=== PATIENT | female | born 1940 | race Asian ===

== ENCOUNTER 2022-05-16 10:15 | Emergency (ER) | payer MEDICARE, OTHER ==
[~2022-05-16] VITALS: Ht 144.8 cm; Wt 64.9 kg
--- NOTE | 2022-05-16 10:25 | NUR ---
C-COLLAR GIVEN TO PARAMEDICS, APPLIED TO PT AT BEDSIDE
--- NOTE | 2022-05-16 10:25 | NUR ---
Received pt 81 yrs female came by shannon S/P ABE TODAY AT 0930 this morning S/P ABE C/O NECK AND BACK PAIN moving all extramity no weeknees no NUBNNES
--- NOTE | 2022-05-16 11:29 | NUR ---
MARC[facility] Officer [place] [id number] in to take TA report
[2022-05-16] MEDS ORDERED: LIDO30AD10 TP (12:23)
[2022-05-16] MEDS ORDERED: IBUP-1953 PO (12:23)
--- NOTE | 2022-05-16 12:32 | NUR ---
soft c-collar provided to pt at bedside; pt requests to apply collar when she is upright upon discharge
--- NOTE | 2022-05-16 12:40 | NUR ---
[facility] ETA 1 HOUR
--- NOTE | 2022-05-16 12:45 | NUR ---
AMBULANCE CANCELLED. PT WILL CALL [facility] W/
[2022-05-16 12:56] VITALS: BP 135/60
--- NOTE | 2022-05-16 12:56 | NUR ---
Patient discharged to home in stable condition. Written and verbal after care instructions given. Patient verbalizes understanding of instruction.
--- NOTE | 2022-05-16 12:57 | NUR ---
Cervical collar and Arm Sling applied to affected areas by [facility]. Patient discharged to home in stable condition. Written and verbal after care instructions given. Patient verbalizes understanding of instruction.
== END 2022-05-16 12:56 | disposition home or self-care (01) ==
LOC: ER 10:37
DX: S16.1XXA Strain of muscle, fascia and tendon at neck level, initial encounter (principal); S29.011A Strain of muscle and tendon of front wall of thorax, initial encounter; I10 Essential (primary) hypertension; Z79.899 Other long term (current) drug therapy; V49.9XXA Car occupant (driver) (passenger) injured in unspecified traffic accident, initial encounter; Y93.89 Activity, other specified; Y92.89 Other specified places as the place of occurrence of the external cause; Y99.8 Other external cause status
CPT/HCPCS: 99284; 72125; 71045; L0172